=== PATIENT | male | born 1960 | race Two or more races ===

== ENCOUNTER 2016-11-02 21:57 | Inpatient (IN) | payer OTHER ==
--- NOTE | ~2016-11-02 | NM8 ---
[facility] A Service of [facility] RADIOLOGY TEXT RESULTS PATIENT: ABA BUSTILLO LOCATION: [facility] : 62 UNIT #: [id number] AGE: [address]: Oliverio Ren MD SEX: M ORDER DR: [id number] [facility] [address] [place], [place] [address] [id number] I MR#: [id number] Acc #: [id number] NAME: ABA BUSTILLO : 1960 SEX: M STUDY DATE/TIME: 11/06/2016 12:35 UNIT: [facility] ROOM: [facility] STUDY DESCRIPTION: NM Bone or Joint Whole Body Attending Physician: Oliverio Ren M.D. Ordering Physician: Greta Pro M.D. Primary Care Physician: Primary Care Physician No MEDICAL IMAGING REPORT This report is preliminary unless electronic signature is present EXAM Bone scan, 11/06 HISTORY Hepatocellular carcinoma. Observation of malignant neoplasm. The patient diagnosed one week ago. FINDINGS Routine whole body delayed images were obtained after the IV administration of 32.7 mCi of technetium 99m-MDP. The exam is correlated with chest CT dated 11/03/2016 and prior abdomen and pelvis CT dated 11/02/2016. There is degenerative uptake in both knees and in the right mid foot. There is some mild degenerative uptake in the elbows and AC joints. The study otherwise demonstrates physiologic tracer distribution. There is no evidence for osseous metastatic disease. IMPRESSION Polyarticular degenerative disease as above. No evidence of osseous metastatic disease. Dictated by... Mendez Moura Jr., M.D. THIS IS AN ELECTRONICALLY VERIFIED REPORT Mendez Moura Jr., M.D. at 11/06/2016 5:00 PM OLGA/philipp TD: 11/06/2016 15:03 JOB #: [id number] [facility] A Service [facility] RADIOLOGY TEXT RESULTS PATIENT: ABA BUSTILLO [facility] [address] [id number] : [birth year] UNIT #: [id number] AGE: [address]: Oliverio Ren MD SEX: M ORDER DR: MEDICAL IMAGING REPORT COPY
--- NOTE | ~2016-11-02 | HP ---
Unit #: [id number] #: [id number] Patient: ABA BUSTILLO [id number] [address] [place], [place] [address] [id number] I MR#: [id number] NAME: ABA BUSTILLO ROOM: 43852 Age: 56 Sex: M Admission Date: 11/03/2016 : 1960 Attending Physician: Aleksandra Miguel M.D. Primary Care Physician: No Primary Care Physician HISTORY AND PHYSICAL CHIEF COMPLAINT Right sided pain. HISTORY OF PRESENT ILLNESS The patient is a 56-year-old male with a past medical history of hepatitis C who presented to the emergency department for evaluation of the above. History is obtained via Icelandic electrical sign wirer #[id number] due to the patient being Icelandic speaking only. Actually, history is obtained from his . The patient preferred that she provide the history. The patient has had a one week history of right upper quadrant pain. There are no exacerbating or alleviating factors. He denies any similar pain. The pain became acutely worse on the day prior to admission. He has had nausea but no vomiting. He denies any constipation or diarrhea. No change in his weight. In the emergency department, CT of the abdomen and pelvis was done and showed findings concerning for an infiltrating malignant-appearing mass involving the right lobe of the liver. He is being admitted to [facility] for evaluation and further treatment. PAST MEDICAL HISTORY 1. Hepatitis C diagnosed in 2010. The patient had Interferon treatment from February to August 2011. 2. The patient denies any hospitalizations. 3. Hyperlipidemia. The patient was told that his cholesterol was high; however, he is not on any medication. PAST SURGICAL HISTORY None. SOCIAL HISTORY The [place] the [place] four [place] ago. He is originally from [place]. He lives with his . He smokes a half pack of cigarettes daily. He denies alcohol or illicit drug use. FAMILY HISTORY Notable for his mother having throat cancer. ALLERGIES No known allergies. HOME MEDICATIONS None. Unit #: [id number] #: [id number] Patient: ABA BUSTILLO REVIEW OF SYSTEMS A ten point review of systems is negative except as indicated in the HPI. The patient denies ever having paracentesis. DIAGNOSTIC STUDIES IMAGING: CT of the abdomen and pelvis shows hepatic cirrhosis. There is a large infiltrative malignant-appearing mass in the posterior segment of the right hepatic lobe measuring up to 5.7 cm showing typical features for hepatocellular carcinoma with extensive tumor thrombus within the portal veins and hepatic vein branches. Mild splenomegaly as well as mild prominent lymph nodes in the gastrohepatic ligament are noted. LABORATORY: INR is 1.1. Urinalysis is essentially negative. Comprehensive metabolic panel notable for glucose of 126. AST and ALT 121 and 126 respectively. Amylase and lipase are normal. Complete blood count notable for hemoglobin and hematocrit of 17.2 and 51.2 respectively. Platelets are 110. PHYSICAL EXAMINATION VITAL SIGNS: Temperature is 98.6, pulse 83, respirations 12, blood pressure 108/68. GENERAL: The patient is a very pleasant male in no acute distress. HEENT: The head is atraumatic. Mucous membranes are moist. NECK: Supple. Trachea is midline. CARDIOVASCULAR: Regular rate and rhythm. LUNGS: Clear to auscultation bilaterally with no increased work of breathing. ABDOMEN: Soft. He is tender to palpation in the right upper quadrant. Bowel sounds are present in all four quadrants. EXTREMITIES: Nontender with no pedal edema. NEURO: The patient is awake and alert. He follows commands. PSYCH: Mood and affect are normal. The patient is cooperative. SKIN: Skin of examined areas is warm and dry. ASSESSMENT The patient is a 56-year-old male with: 1. Liver mass concerning for malignancy. 2. 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 The patient's platelet is 110 with no baseline for comparison. 3. Transaminitis secondary to hepatitis C. 4. Hepatitis C, status post Interferon treatment in 2010. 5. Hyperlipidemia, not on medication. 6. Tobacco abuse. PLAN 1. Admit for observation to Med/Surg. 2. NPO until seen by Dr. Valdovinos. 3. Normal saline at 75 mL/hour. 4. Consult Dr. Valdovinos regarding liver mass. 5. Consult Dr. Pro regarding liver mass. 6. P.r.n. morphine. 7. P.r.n. Zofran. 8. Repeat labs in the morning. Unit #: [id number] #: [id number] Patient: ABA BUSTILLO 9. SCDs for DVT prophylaxis. 10. Additional workup and consultants based on above. Dictated by Ray Thompson TD: 11/03/2016 06:16 JOB #: [id number] HISTORY AND PHYSICAL X Aleksandra Miguel MD HISTORY AND PHYSICAL
--- NOTE | ~2016-11-02 | CO ---
Unit #: [id number] #: [id number] Patient: ABA BUSTILLO [id number] [address] [place], [place] [address] [id number] I MR#: [id number] NAME: ABA BUSTILLO ROOM: 226 Age: 56 Sex: M Admission Date: 11/03/2016 : 1960 Attending Physician: Oliverio Ren M.D. Primary Care Physician: Primary Care Physician No Consultation Date: 11/03/2016 CONSULTATION REPORT REASON FOR CONSULTATION Right upper quadrant abdominal pain and hepatocellular cancer. HISTORY OF PRESENT ILLNESS Mr. King is a 56-year-old gentleman, who is originally from [place]. He was in the refugee camp in [facility], where he was as a refugee in [facility] and is subsequently being came to [facility] about 4 months ago along with his and family. Apparently, he is known to have had hepatitis C and failed treatment to interferons with or without ribavirin in [facility]. He subsequently has had evaluations in [facility], the nature of which is unclear. For the past 3 to 4 weeks, he has been having right upper quadrant abdominal pain along with nausea and anorexia, and upon admission found to have a hepatocellular carcinoma on imaging studies on CAT scan. PAST MEDICAL HISTORY Significant for hepatitis C as mentioned above failed to interferon treatment many years ago, history of hyperlipidemia not on any medication. PAST SURGICAL HISTORY None. HOME MEDICATIONS None. ALLERGIES No known drug allergies. FAMILY HISTORY Significant for mother having throat cancer. SOCIAL HISTORY The patient smokes half pack of cigarette daily and does not drink alcohol. He is originally from [place], was in the refugee camp in [facility] for 3 to 4 years before being given refugee Asylum in [facility]. REVIEW OF SYSTEMS Detailed review of organ systems does not reveal any recent weight loss. No history of fever, chills, or rigors. No history of headache, seizures, or syncope. No history of cough, expectoration, or hemoptysis. No history of dysuria, hematuria, or pyuria. No history of focal seizures or extremity weakness. Unit #: [id number] #: [id number] Patient: ABA BUSTILLO PHYSICAL EXAMINATION GENERAL: He is alert and oriented, and appears comfortable. VITAL SIGNS: Stable with a temperature of 98.4, pulse is 55 per minute and regular, respiratory rate is 16, and blood pressure is 102/58. He weighs 142 pounds. We do not know his baseline weight. HEENT: He has no pallor, icterus, lymphadenopathy, or peripheral edema. CARDIOVASCULAR: Reveal normal heart sounds. No murmurs on auscultation. LUNGS: Reveal normal breath sounds. Good air entry. ABDOMEN: Soft. There being localized area of tenderness in the right upper quadrant. Liver and spleen are not palpable. Bowel sounds normal. DIAGNOSTIC STUDIES LABORATORY RESULTS: Reveals a normal CBC, INR, and serum chemistry except for albumin of 3.2 and AST and ALT which are mildly elevated to 122 and 115 respectively, alkaline phosphatase is normal. His alpha-fetoprotein level is 20,000. Hepatitis C serology is pending. IMAGING STUDIES: His CT scan of the chest and abdomen were done and shows 5 cm x 5.5 cm infiltrating mass in the right hepatic lobe. The patient does have underlying cirrhosis and mild splenomegaly. CLINICAL IMPRESSION The patient has an underlying cirrhosis and substantially large hepatocellular cancer with high alpha-fetoprotein levels. I am quite doubtful whether this is resectable mass based upon his presentation imaging and tumor marker level. In any event, a discussion with the transplant surgeon. Liver transplant center will be appropriate which is being initiated. Thank you for asking me to see this pleasant gentleman. I appreciate the consult. Dictated by... Ray Cid/chico TD: 11/18/2016 06:37 JOB #: [id number] CC: Aleksandra Miguel M.D. CONSULTATION REPORT X Jonathan Valdovinos MD CONSULTATION REPORT
--- NOTE | ~2016-11-02 | CT2 ---
[facility] A Service of [facility] RADIOLOGY TEXT RESULTS PATIENT: ABA BUSTILLO LOCATION: [facility] 226-01 : 62 UNIT #: [id number] AGE: [address]: Viki Gilbert MD SEX: M ORDER DR: [id number] [facility] [address] [place], [place] [address] [id number] MR#: [id number] Acc #: [id number] NAME: ABA BUSTILLO : 1960 SEX: M STUDY DATE/TIME: 11/02/2016 22:47 UNIT: [facility] ROOM: STUDY DESCRIPTION: CT Abd and Pelv W Cont Attending Physician: Chica Benites M.D. Ordering Physician: Yassine Pierce M.D. Primary Care Physician: No Primary Care Physician MEDICAL IMAGING REPORT This report is preliminary unless electronic signature is present EXAM CT abdomen and pelvis with contrast. DATE OF EXAM 11/02/2016. HISTORY 56-year-old male in the ED complaining of 1-day history of right-side abdomen pain. TECHNIQUE CT examination of the abdomen and pelvis was performed with IV contrast. GI contrast material was not ordered. NOTE: This CT exam was performed with one or more of the following radiation dose reduction techniques: automatic exposure control, adjustment of mA and/or kV according to patient size, and iterative reconstruction. FINDINGS ABDOMEN: The examination shows morphologic changes of hepatic cirrhosis. There is a malignant-appearing infiltrative mass in the posterior segment right hepatic lobe inferiorly (segment 6) measuring at least 5 x 4.7 x 5.7 cm. Extensive tumor thrombus is present within portal veins and an accessory hepatic vein within the right hepatic lobe. The findings are compatible with hepatocellular carcinoma. Main portal vein, left portal veins and the remaining hepatic veins and IVC are patent. A few mildly prominent lymph nodes are present in the gastrohepatic ligament, but no adenopathy is seen elsewhere within the abdomen, retroperitoneum or pelvis. There is no abdominal ascites. The spleen is mildly enlarged. Small bowel and colon are normal in caliber and appearance, as imaged. The kidneys are negative with no evidence of urinary obstruction. PELVIS: Bladder, prostate and rectum are negative. STS. [facility] A Service of [facility] RADIOLOGY TEXT RESULTS PATIENT: ABA BUSTILLO LOCATION: [facility] 226-01 : 62 UNIT #: [id number] AGE: [address]: Viki Gilbert MD SEX: M ORDER DR: Mild atelectasis in the right posterior costophrenic angle. Lung base images otherwise negative. No pleural effusion. IMPRESSION 1. Hepatic cirrhosis. 2. Large, infiltrative malignant-appearing mass in the posterior segment right hepatic lobe measuring up to 5.7 cm showing typical features for hepatocellular carcinoma. This includes extensive tumor thrombus within segmental portal veins and hepatic vein branches in the posterior segment right hepatic lobe. No additional tumor thrombus is seen elsewhere within the liver. 3. Mild splenomegaly. No ascites. 4. Mildly prominent lymph nodes in the gastrohepatic ligament. No adenopathy is seen elsewhere within the abdomen, retroperitoneum or pelvis. STAT * RESULT Dictated by... Aníbal Can M.D. THIS IS AN ELECTRONICALLY VERIFIED REPORT Aníbal Can M.D. at 11/03/2016 10:17 AM Justice TD: 11/02/2016 23:17 JOB #: [id number] MEDICAL IMAGING REPORT COPY
--- NOTE | ~2016-11-02 | CT55 ---
[facility] A Service of [facility] & [facility] RADIOLOGY TEXT RESULTS PATIENT: ABA BUSTILLO LOCATION: C2A - : 62 UNIT #: [id number] AGE: [address]: Oliverio Ren MD SEX: M ORDER DR: [id number] [facility] [address] [place], [place] [address] [id number] I MR#: [id number] #: [id number] NAME: ABA BUSTILLO : 1960 SEX: M STUDY DATE/TIME: 11/03/2016 19:44 UNIT: C2A ROOM: 226 STUDY DESCRIPTION: CT Chest W Con Attending Physician: Viki Gilbert M.D. Ordering Physician: Greta Pro M.D. Primary Care Physician: No Primary Care Physician MEDICAL IMAGING REPORT This report is preliminary unless electronic signature is present EXAM CT of chest with contrast HISTORY Liver mass. This is identified on a CT performed 11/02/2016. This mass by CT appears to be hepatocellular carcinoma. This exam is requested for surveillance for metastatic disease. TECHNIQUE Axial CT images were obtained from the thoracic inlet through the dome of the diaphragm following the administration of intravenous contrast material. This CT exam was performed with one or more of the following radiation dose reduction techniques: automatic control, adjustment of mA and/or kV according to patient size, and iterative reconstruction. FINDINGS The thyroid gland trachea and esophagus appear unremarkable. There is no pleural or pericardial effusion. Thoracic aorta measures within normal size limits. Patient appears to have some dependent atelectasis and I do not see any suspicious noncalcified pulmonary nodules or masses to suggest pulmonary metastatic disease. Mediastinal and hilar lymph nodes do not appear pathologically enlarged. This patient again is noted to have a cirrhotic morphology to the liver and again there is an infiltrating mass identified within the right hepatic lobe which certainly could reflect hepatocellular carcinoma given background changes of cirrhosis and portal vein involvement. High density material is seen within the gallbladder which is favored to represent vicarious excretion of contrast material from yesterday's study as I do not clearly see it on the prior examination. Review of bone windows does not demonstrate any aggressive osseous abnormalities. [facility] A Service of [facility] & [facility] RADIOLOGY TEXT RESULTS PATIENT: ABA BUSTILLO LOCATION: A 226-01 : 62 UNIT #: [id number] AGE: [address]: Oliverio Ren MD SEX: M ORDER DR: IMPRESSION 1. No convincing evidence of metastatic disease to the thorax. 2. Bibasilar atelectasis which has increased when compared to yesterday's study. 3. Cirrhotic morphology to the liver. Patient is again noted to have an infiltrating mass within the right hepatic lobe. 4. Vicarious excretion of contrast material suspected within the gallbladder. Dictated by... Nely De La Cruz M.D. THIS IS AN ELECTRONICALLY VERIFIED REPORT Nely De La Cruz M.D. at 11/06/2016 1:16 PM AFF/rnr TD: 11/04/2016 00:24 JOB #: [id number] MEDICAL IMAGING REPORT COPY
--- NOTE | ~2016-11-02 | CO ---
Unit #: [id number] #: [id number] Patient: ABA BUSTILLO [id number] [address] [place], [place] [address] [id number] I MR#: [id number] NAME: ABA BUSTILLO ROOM: 226 Age: 56 Sex: M Admission Date: 11/03/2016 : 1960 Attending Physician: Viki Gilbert M.D. Primary Care Physician: No Primary Care Physician CONSULTATION REPORT CHIEF COMPLAINT Hepatitis C cirrhosis, now hepatocellular carcinoma. HISTORY OF PRESENT ILLNESS This is a 56-year-old male who is a refugee. He is from [place]. He came to this [facility] about three months ago. Patient has a hepatitis C. He was receiving Interferon during 2010 but no response. Patient now has cirrhosis of the liver. Patient came with a right upper quadrant pain, gradually worsened. Patient had a CT of the abdomen and pelvis on 11/02/2016. It shows a 5 x 4.7 x 5.7 cm mass in the right upper lobe. Extensive tumor thrombus is present within the portal vein and accessory hepatic vein with the right hepatic lobe. Main portal vein, left portal veins are patent. His CT of the chest is pending. Bone scan is pending. Alpha- fetoprotein pending. No weight loss. REVIEW OF SYSTEMS REVIEW OF SYSTEMS CONSTITUTIONAL: No fever, no chills, no sweats, no weight loss. EYES: No visual symptoms. EARS, NOSE AND THROAT: There is no runny nose or sore throat or difficulty hearing. CARDIOVASCULAR: No chest pain. No shortness of breath. No palpitations. No orthopnea. No PND. RESPIRATORY: No cough. No wheezing. No hemoptysis. GASTROINTESTINAL: As mentioned above, right upper quadrant pain. GENITOURINARY: No urinary frequency, hesitancy or urgency. No blood in the urine. MUSCULOSKELETAL: No muscle or joint pain. NEUROLOGIC: No headache. No numbness or tingling. No weakness. No seizure. PSYCHIATRIC: No anxiety, depression or mood disturbance. ENDOCRINE: No excessive urination or thirst. DERMATOLOGIC: No rash or change in the skin. ALLERGIC/IMMUNOLOGIC: No symptoms. HEMATOLOGIC/LYMPHATIC: Denies any symptoms. PAST MEDICAL HISTORY 1. Hepatitis C cirrhosis of the liver. Received Interferon in 2010. No Unit #: [id number] #: [id number] Patient: ABA BUSTILLO. 2. Increased cholesterol. 3. Now hepatocellular carcinoma. ALLERGIES None. SOCIAL HISTORY Has been smoking 10 cigarettes per day for 30 years, denies alcohol abuse. 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 FAMILY HISTORY Father of kidney disease and mother had a head and neck cancer. PHYSICAL EXAMINATION GENERAL: Patient is comfortable. ECOG is 0. The patient is pleasant. VITAL SIGNS: Afebrile, O2 sat on room air 93%, pulse 55, respirations 17, blood pressure 126/70. HEENT: Moist mucosa. Pupils equally reactive to light. Extraocular muscles intact. Sclerae anicteric. No obvious bleeding from nasal mucosa or oral mucosa. Scalp normal. Hearing normal. NECK: No JVD. No lymphadenopathy. LYMPHATIC/HEMATOLOGIC: There is no palpable adenopathy in the neck, axilla or inguinal area. CARDIOVASCULAR: S1, S2. Regular rate and rhythm. No S3 or S4. RESPIRATORY: Chest symmetrical, normal. Clear to auscultation bilaterally. No wheezes, no rales, no rhonchi. No dullness to percussion. ABDOMEN/GASTROINTESTINAL: Abdomen is soft, nontender, nondistended. No hepatosplenomegaly. EXTREMITIES: There is no clubbing, no cyanosis, no edema. No varicose veins. NEUROLOGICAL: Patient is alert, awake and oriented x3. Cranial nerves II-XII are intact. Sensory grossly intact. Motor is 4/5 in all four extremities. Gait is normal. Station is normal. Language is normal. Memory is normal. DTRs +2 in all four extremities. MUSCULOSKELETAL: No joint swelling. No bony tenderness. No muscle tenderness. SKIN: No petechiae, no rash, no ecchymosis. PSYCHIATRIC: No anxiety. No delusions or hallucinations. There is no agitation. Eye contact is normal. Affect is appropriate. There is no flight of ideas. DIAGNOSTIC STUDIES LABORATORY: WBC 10.8, hemoglobin 16.5, platelets 120, creatinine is 0.7, AST 125, ALT 125 as well, bilirubin 0.9. ASSESSMENT This is a 56-year-old male with the following active issues: 1. Hepatocellular carcinoma: Patient has an almost 6 cm hepatic mass. I will get CT of the chest and bone scan. Will check alpha-fetoprotein. I will consult Dr. Leda Collado for possible resection. 2. Thrombocytopenia: This is due to sequestration of platelets in the liver and spleen. We will observe. 3. Pain: He is taking morphine, hydrocodone. DISCUSSION I had an extensive discussion with the patient and his and the case Unit #: [id number] #: [id number] Patient: ABA BUSTILLO worker. Once the CT of the chest, bone scan become available we will discuss with them regarding prognosis. I also texted Dr. Leda Collado regarding the patient to get his opinion for early resection. Dictated by... Ray Soto/india TD: 11/03/2016 22:21 JOB #: [id number] CONSULTATION REPORT X Greta Pro MD X CONSULTATION REPORT
--- NOTE | ~2016-11-02 | DS ---
Unit #: [id number] #: [id number] Patient: ABA BUSTILLO [id number] [facility]. [place], [place] [address] [id number] I MR#: [id number] NAME: ABA BUSTILLO ROOM: 226 Age: 56 Sex: M Admission Date: 11/03/2016 : 1960 Discharge Date: 11/06/2016 Attending Physician: Oliverio Ren M.D. Primary Care Physician: No Primary Care Physician DISCHARGE SUMMARY DIAGNOSIS ON ADMISSION Liver mass. DIAGNOSES ON DISCHARGE 1. Hepatocellular carcinoma. 2. Chronic hepatitis C. 3. Hyperlipidemia. 4. Tobacco abuse. 5. Thrombocytopenia, secondary to chronic hepatitis C. CONSULTATIONS 1. Dr. Jonathan Valdovinos in GI consultation. 2. Dr. Rey Pro in oncology consultation. DIAGNOSTIC STUDIES LABORATORY: The patient's creatinine is 0.8, sodium 135, potassium 4.1. AST was 122, ALT was 155. WBC 9.2, hemoglobin 15.6, platelet count 104,000. IMAGING: CT scan of chest with contrast did not reveal any convincing evidence of metastatic disease to thorax. There was cirrhotic morphology to liver. There was infiltrating mass within right hepatic lobe. CT scan of abdomen and pelvis revealed hepatic cirrhosis. There was large infiltrative malignant-appearing mass in the posterior segment of right hepatic lobe measuring up to 5.7 cm. This includes extensive tumor thrombosis within segmental portal veins and hepatic vein branches. Mild splenomegaly present. HOSPITAL COURSE A 56-year-old male was admitted to [facility] with liver mass. Details are as per admission H and P. The patient was seen by Dr. Dr. Pro in consultation. The patient's liver mass was likely malignant. Bone scan was done. The results are pending. I discussed with Dr. Pro this morning who is planning to refer patient to [facility] for treatment via injection into liver with Dr. Khalil. Dr. Pro is going to discuss with patient's family prior to discharge today. Today patient is comfortable, is not in any acute distress. PHYSICAL EXAMINATION VITAL SIGNS: Reveal temperature of 99.2, pulse is 60 per minute, respiratory rate is 16 per minute, blood pressure is 95/58. HEENT: Revealed no conjunctival congestion. Sclerae is nonicteric. Unit #: [id number] #: [id number] Patient: ABA BUSTILLO NECK: Supple. Trachea is central. RESPIRATORY: Revealed breath sounds equal bilaterally. There are no wheezes or crackles. HEART: Regular rate and rhythm. S1, S2. ABDOMEN: Soft, nontender, nondistended. Bowel sounds are present in all four quadrants. NEUROLOGIC: Strength is 5/5 bilaterally. SKIN: Warm and dry. RECOMMENDATIONS ON DISCHARGE Condition is stable. Activity as tolerated. MEDICATIONS Pain medication will be as per Dr. Pro. FOLLOWUP The patient is advised to follow up with oncology as recommended. The plan was discussed in detail with patient and . Further followup will be as per Dr. Suresh. Please make note that I have discussed plan with Dr. Pro who is going to discuss with patient and his this afternoon. Dictated by... Ray Santamaria TD: 11/06/2016 15:43 JOB #: [id number] DISCHARGE SUMMARY X Oliverio Ren MD X DISCHARGE SUMMARY
[2016-11-02 21:09] LABS: BASOPHIL# 0.1 X10e3 (0-0.3); BASOPHIL% 1.1 % (0-2.5); EOSINOPHIL# 0.4 X10e3 (0-0.7); EOSINOPHIL% 4.6 % (0.0-7.0); HEMATOCRIT 51.2 % (38.0-50.0); HEMOGLOBIN 17.2 gm/dL (13.0-16.0); LYMPHOCYTE# 3.1 X10e3 (1.0-3.5); LYMPHOCYTE% 33.6 % (17.0-45.0); MEAN CELL VOLUME 91.2 FL (83-96); MEAN CORPUSCULAR HEMOGLOBIN 30.6 PG (28-34); MEAN CORPUSCULAR HGB CONC 33.5 g/dL (30-36); MEAN PLATELET VOLUME 9.2 FL (6.5-11.5); MONOCYTE# 0.8 X10e3 (0-1.0); MONOCYTE% 8.6 % (3.0-12.0); NEUTROPHIL# 4.8 X10e3 (1.5-7.1); NEUTROPHIL% 52.1 % (40-75); PLATELET COUNT 110 X10e3 (140-420); RED BLOOD COUNT 5.62 X10e (3.90-5.60); RED CELL DISTRIBUTION WIDTH 14.4 % (11.0-15.5); WHITE BLOOD COUNT 9.2 X10e3 (4.0-10.5)
[2016-11-02 21:11] LABS: DIFF IND NO
[2016-11-02 21:33] LABS: ALBUMIN SERUM 3.5 g/dL (3.5-5.0); ALKALINE PHOSPHATASE 83 U/L (32-92); ALT (SGPT) 126 U/L (10-40); AMYLASE 43 U/L (0-46); AST (SGOT) 121 U/L (10-42); BILIRUBIN, DIRECT 0.3 mg/dL (0.0-0.2); BILIRUBIN,INDIRECT 0.9 mg/dL (0.0-0.9); BILIRUBIN,TOTAL 1.2 mg/dL (0.2-2.0); BLOOD UREA NITROGEN 10 mg/dL (9-23); CALCIUM SERUM 9.1 mg/dL (8.4-10.2); CARBON DIOXIDE 26 mmol/L (22-31); CHLORIDE 103 mmol/L (100-111); CREATININE SERUM 0.8 mg/dL (0.6-1.4); GLOM FILT RATE Estimated ABOVE60 mL/min (>60); GLUCOSE FASTING 126 mg/dL (70-110); LIPASE 35 U/L (22-51); PROTEIN TOTAL SERUM 7.6 g/dL (6.0-8.3); SODIUM 137 mmol/L (135-145)
[2016-11-02 22:02] LABS: URINE SOURCE CLEAN CATCH
[2016-11-02 22:48] LABS: URINE APPEARANCE CLEAR; URINE BILIRUBIN NEG (NEG); URINE BLOOD NEG (NEG); URINE COLOR YELLOW; URINE GLUCOSE NEG (NEG); URINE KETONE NEG (NEG); URINE LEUKOCYTE ESTERASE NEG (NEG); URINE NITRATE NEG (NEG); URINE PROTEIN NEG (NEG); URINE SPECIFIC GRAVITY 1.012 (1.003-1.035); URINE UROBILINOGEN 0.2 MG/DL (NEG)
[2016-11-02 22:54] LABS: CULTURE INDICATED? NO
[2016-11-03 00:36] LABS: INR 1.1; PROTHROMBIN TIME (PATIENT) 11.7 SECONDS (9.6-11.5)
[2016-11-03 04:21] LABS: BASOPHIL# 0.1 X10e3 (0-0.3); BASOPHIL% 1.3 % (0-2.5); EOSINOPHIL# 0.6 X10e3 (0-0.7); EOSINOPHIL% 5.3 % (0.0-7.0); HEMATOCRIT 48.8 % (38.0-50.0); HEMOGLOBIN 16.5 gm/dL (13.0-16.0); LYMPHOCYTE# 3.8 X10e3 (1.0-3.5); LYMPHOCYTE% 35.8 % (17.0-45.0); MEAN CORPUSCULAR HEMOGLOBIN 30.5 PG (28-34); MEAN CORPUSCULAR HGB CONC 33.8 g/dL (30-36); MEAN PLATELET VOLUME 9.7 FL (6.5-11.5); MONOCYTE% 9.6 % (3.0-12.0); NEUTROPHIL# 5.2 X10e3 (1.5-7.1); PLATELET COUNT 120 X10e3 (140-420); RED BLOOD COUNT 5.42 X10e (3.90-5.60); RED CELL DISTRIBUTION WIDTH 14.4 % (11.0-15.5); WHITE BLOOD COUNT 10.8 X10e3 (4.0-10.5)
[2016-11-03 04:22] LABS: DIFF IND NO
[2016-11-03 04:33] LABS: INR 1.1; PROTHROMBIN TIME (PATIENT) 12.1 SECONDS (9.6-11.5)
[2016-11-03 04:52] LABS: ALBUMIN SERUM 3.5 g/dL (3.5-5.0); ALKALINE PHOSPHATASE 79 U/L (32-92); ALT (SGPT) 125 U/L (10-40); AST (SGOT) 125 U/L (10-42); BILIRUBIN,TOTAL 1.6 mg/dL (0.2-2.0); BLOOD UREA NITROGEN 10 mg/dL (9-23); BUN/CREATININE RATIO 14.28; CALCIUM SERUM 9.1 mg/dL (8.4-10.2); CARBON DIOXIDE 25 mmol/L (22-31); CHLORIDE 104 mmol/L (100-111); CREATININE SERUM 0.7 mg/dL (0.6-1.4); GLOM FILT RATE Estimated ABOVE60 mL/min (>60); GLUCOSE FASTING 100 mg/dL (70-110); POTASSIUM 4.9 mmol/L (3.5-5.1); PROTEIN TOTAL SERUM 7.5 g/dL (6.0-8.3); SODIUM 136 mmol/L (135-145)
[2016-11-03] MEDS ORDERED: NO MEDICATIONS (10:30)
[2016-11-04 05:32] LABS: HEMATOCRIT 46.1 % (38.0-50.0); HEMOGLOBIN 15.6 gm/dL (13.0-16.0); MEAN CELL VOLUME 90.9 FL (83-96); MEAN CORPUSCULAR HEMOGLOBIN 30.7 PG (28-34); MEAN CORPUSCULAR HGB CONC 33.8 g/dL (30-36); RED BLOOD COUNT 5.07 X10e (3.90-5.60); RED CELL DISTRIBUTION WIDTH 14.3 % (11.0-15.5); WHITE BLOOD COUNT 9.2 X10e3 (4.0-10.5)
[2016-11-04 06:05] LABS: ALBUMIN SERUM 3.2 g/dL (3.5-5.0); ALKALINE PHOSPHATASE 75 U/L (32-92); ALT (SGPT) 115 U/L (10-40); AST (SGOT) 122 U/L (10-42); BLOOD UREA NITROGEN 15 mg/dL (9-23); BUN/CREATININE RATIO 18.75; CALCIUM SERUM 8.9 mg/dL (8.4-10.2); CARBON DIOXIDE 25 mmol/L (22-31); CHLORIDE 102 mmol/L (100-111); CREATININE SERUM 0.8 mg/dL (0.6-1.4); GLOM FILT RATE Estimated ABOVE60 mL/min (>60); GLUCOSE FASTING 92 mg/dL (70-110); POTASSIUM 4.1 mmol/L (3.5-5.1); PROTEIN TOTAL SERUM 6.8 g/dL (6.0-8.3); SODIUM 135 mmol/L (135-145)
[2016-11-06] MEDS ORDERED: ROXICODONE5 MG PO (14:39)
== END 2016-11-06 16:12 | disposition home or self-care (01) | DRG 435 ==
LOC: CED 21:57 → CEDOF 11-03 02:25 → C2A 11-03 06:38
PROVIDERS: Emergency Medicine; Family Medicine; Internal Medicine
DX: C22.0 Liver cell carcinoma (principal); I81 Portal vein thrombosis; I82.0 Budd-Chiari syndrome; B19.20 Unspecified viral hepatitis C without hepatic coma; E78.5 Hyperlipidemia, unspecified; F17.210 Nicotine dependence, cigarettes, uncomplicated; D69.6 Thrombocytopenia, unspecified; R74.0 Nonspecific elevation of levels of transaminase and lactic acid dehydrogenase [LDH]; K74.60 Unspecified cirrhosis of liver; R04.0 Epistaxis
CPT/HCPCS: 36415; 71260; 74177; 78306; 80048; 80053; 80076; 81003; 82105; 82150; 83690; 85025; 85027; 85610; 87521; 96374; 96375; 99285; A9503; J2270; J2405; Q9967

== ENCOUNTER → 2017-02-10 | Outpatient (CLI) | payer OTHER ==
[~2017-02-10] MED LIST: NO MEDICATIONS; ROXICODONE5 MG PO
[2017-02-10 13:43] LABS: ALBUMIN SERUM 2.8 g/dL (3.5-5.0); BILIRUBIN,TOTAL 4.5 mg/dL (0.2-2.0); CALCIUM SERUM 8.8 mg/dL (8.4-10.2); CREATININE SERUM 0.7 mg/dL (0.6-1.4); GLOM FILT RATE Estimated 106.3 mL/min (>60); POTASSIUM 3.7 mmol/L (3.5-5.1); PROTEIN TOTAL SERUM 7.7 g/dL (6.0-8.3)
[2017-02-10 15:00] LABS: HEMATOCRIT 47.8 % (38.0-50.0); HEMOGLOBIN 16.1 gm/dL (13.0-16.0); MEAN CELL VOLUME 94.1 FL (83-96); MEAN CORPUSCULAR HEMOGLOBIN 31.7 PG (28-34); MEAN CORPUSCULAR HGB CONC 33.7 g/dL (30-36); MEAN PLATELET VOLUME 10.7 FL (6.5-11.5); RED BLOOD COUNT 5.08 X10e (3.90-5.60); RED CELL DISTRIBUTION WIDTH 17.2 % (11.0-15.5); WHITE BLOOD COUNT 3.4 X10e3 (4.0-10.5)
== END | disposition home or self-care (01) ==
LOC: CLAB 12:57
PROVIDERS: Surgery Surgical Oncology
DX: C22.0 Liver cell carcinoma (principal)
CPT/HCPCS: 36415; 80053; 82105; 85027

== ENCOUNTER 2017-02-14 17:15 | Emergency (ER) | payer OTHER ==
--- NOTE | ~2017-02-14 | CT4 ---
[facility] A Service of [facility] RADIOLOGY TEXT RESULTS PATIENT: ABA BUSTILLO LOCATION: [facility] : 62 UNIT #: [id number] AGE: [address]: Zeferino Oconnor MD SEX: M ORDER DR: [id number] [facility]. [place], [place] [address] [id number] E MR#: [id number] Acc #: [id number] NAME: ABA BUSTILLO : 1960 SEX: M STUDY DATE/TIME: 02/14/2017 20:04 UNIT: [facility] ROOM: STUDY DESCRIPTION: CT Abd and Pelv Wo Cont Attending Physician: Zeferino Oconnor M.D. Ordering Physician: Zeferino Oconnor M.D. Primary Care Physician: Leda Collado M.D. MEDICAL IMAGING REPORT This report is preliminary unless electronic signature is present EXAM CT abdomen and pelvis without contrast INDICATIONS Generalized abdominal and lower back pain and weakness for the past [address] abdomen and pelvis. This CT exam was performed with one or more of the following radiation dose reduction techniques: automatic exposure control, adjustment of mA and/or kV according to patient size, and iterative reconstruction. COMPARISON STUDIES 11/02/2016 FINDINGS Cirrhotic morphology of the liver. There is ill-defined area of low attenuation in the posterior right hepatic lobe measuring approximately 4.3 cm. This area previously measured up to 5 cm but it is not well seen on this study. Spleen measures 13.2 cm. The kidneys adrenal glands, pancreas, gallbladder have an unremarkable unenhanced appearance. The bowel loops are nondilated. Pelvis without contrast. No pelvic mass or fluid. No aggressive appearing bone lesion. IMPRESSION 1. Cirrhosis. Mild splenomegaly. 2. Ill-defined area of low attenuation posterior right hepatic lobe measures smaller than on 11/02/2016, but would be better [facility] A Service of [facility] RADIOLOGY TEXT RESULTS PATIENT: ABA BUSTILLO LOCATION: [facility] : 62 UNIT #: [id number] AGE: [address]: Zeferino Oconnor MD SEX: M ORDER DR: characterized with dedicated liver protocol MRI or CT. Dictated by... Lucian Spencer M.D. THIS IS AN ELECTRONICALLY VERIFIED REPORT Lucian Spencer M.D. at 02/15/2017 2:26 PM KELL/emily TD: 02/14/2017 23:03 JOB #: [id number] MEDICAL IMAGING REPORT Page 1 of 1 COPY
[2017-02-14 18:56] LABS: BASOPHIL% 0.7 % (0-2.5); EOSINOPHIL# 0.2 X10e3 (0-0.7); EOSINOPHIL% 4.3 % (0.0-7.0); HEMOGLOBIN 15.7 gm/dL (13.0-16.0); LYMPHOCYTE# 0.9 X10e3 (1.0-3.5); MEAN CELL VOLUME 94.6 FL (83-96); MEAN CORPUSCULAR HEMOGLOBIN 31.6 PG (28-34); MEAN CORPUSCULAR HGB CONC 33.4 g/dL (30-36); MONOCYTE# 0.6 X10e3 (0-1.0); MONOCYTE% 10.5 % (3.0-12.0); NEUTROPHIL# 3.7 X10e3 (1.5-7.1); NEUTROPHIL% 67.5 % (40-75); RED BLOOD COUNT 4.96 X10e (3.90-5.60); WHITE BLOOD COUNT 5.5 X10e3 (4.0-10.5)
[2017-02-14 19:15] LABS: DIFF IND NO; PLATELET COUNT 66 X10e3 (140-420)
[2017-02-14 19:17] LABS: ALBUMIN SERUM 2.7 g/dL (3.5-5.0); BILIRUBIN, DIRECT 3.6 mg/dL (0.0-0.2); BILIRUBIN,INDIRECT 3.4 mg/dL (0.0-0.9); BUN/CREATININE RATIO 11.42; CALCIUM SERUM 8.8 mg/dL (8.4-10.2); CREATININE SERUM 0.7 mg/dL (0.6-1.4); GLOM FILT RATE Estimated 106.3 mL/min (>60); POTASSIUM 4.4 mmol/L (3.5-5.1); PROTEIN TOTAL SERUM 7.4 g/dL (6.0-8.3)
[2017-02-14 19:31] LABS: URINE SOURCE CLEAN CATCH
[2017-02-14 19:37] LABS: URINE APPEARANCE CLEAR; URINE BILIRUBIN NEG (NEG); URINE BLOOD NEG (NEG); URINE COLOR DK YELLOW; URINE GLUCOSE NEG (NEG); URINE KETONE NEG (NEG); URINE LEUKOCYTE ESTERASE NEG (NEG); URINE NITRATE NEG (NEG); URINE PH 6.5 (5-8); URINE PROTEIN NEG (NEG); URINE SPECIFIC GRAVITY 1.004 (1.003-1.035); URINE UROBILINOGEN 0.2 MG/DL (NEG)
[2017-02-14 19:42] LABS: CULTURE INDICATED? NO
[2017-02-14 19:58] LABS: INR 1.3; PARTIAL THROMBOPLASTIN TIME 32.5 SECONDS (23.5-31.3)
== END 2017-02-14 21:29 | disposition home or self-care (01) ==
LOC: CED 17:15
PROVIDERS: Emergency Medicine
DX: C80.1 Malignant (primary) neoplasm, unspecified (principal); R10.11 Right upper quadrant pain
CPT/HCPCS: 36415; 74176; 80048; 80076; 81003; 82150; 83690; 85025; 85610; 85730; 96361; 96374; 96375; 99284; J2270; J2405

== ENCOUNTER → 2017-04-27 | Outpatient (CLI) | payer OTHER ==
--- NOTE | ~2017-04-27 | MR2 ---
[facility] A Service of [facility] & [facility] RADIOLOGY TEXT RESULTS PATIENT: ABA BUSTILLO LOCATION: [facility] : 62 UNIT #: [id number] AGE: [address]: Greta Pro MD SEX: M ORDER DR: [id number] [facility] [address] [place], [place] [address] [id number] O MR#: [id number] Acc #: [id number] NAME: ABA BUSTILLO : 1960 SEX: M STUDY DATE/TIME: 04/27/2017 18:55 UNIT: [facility] ROOM: STUDY DESCRIPTION: MR Abdomen WWo Cont Attending Physician: Greta Pro M.D. Referring Physician: Greta Pro M.D. Ordering Physician: Greta Pro M.D. Primary Care Physician: Leda Collado M.D. MRI CENTER REPORT This report is preliminary unless electronic signature is present. EXAM MRI with and without contrast DATE 04/27/2017 HISTORY Acute hepatitis C. The patient states "liver pain" for 5-6 months, swelling of both feet. Patient states that he is a candidate for liver transplant. Additional history of prostate cancer with last chemotherapy treatment February 08, 2017, and last radiation therapy treatment January 06, 2017. COMPARISON CT abdomen and pelvis without contrast 02/14/2017; whole body bone scan 11/06/2016; CT chest with contrast 11/03/2016; CT abdomen and pelvis with contrast 11/02/2016. PROCEDURE Multiplanar, multisequence imaging was obtained of the abdomen without and with contrast. Dynamic postcontrast imaging was obtained. 14 mL MultiHance contrast was administered intravenously. FINDINGS Advanced cirrhotic liver morphology is redemonstrated. There is abnormal early arterial phase of hyper enhancement in the right hepatic lobe, greatest posteriorly, greatest in segment 6, worrisome for potential infiltrating hepatocellular carcinoma. The region measures 8.1 x 6.2 cm in aggregate. Additionally, there appears to be thrombus within a posterior division of the right portal vein, and within the right middle and right hepatic veins. It is difficult to discern whether this represents bland thrombus or tumor thrombus. A second site of early arterial hyper enhancement is demonstrated in the anterior right hepatic STS. [facility] A Service of [facility] RADIOLOGY TEXT RESULTS PATIENT: ABA BUSTILLO LOCATION: [facility] : 62 UNIT #: [id number] AGE: [address]: Greta Pro MD SEX: M ORDER DR: lobe, segment 7 measuring 2.0 x 1.8 cm worrisome for another satellite of potential HCC. Main portal vein, left portal vein branch, SMV and splenic vein remain patent. Borderline splenic enlargement of 14.0 cm without focal abnormality. There is a small quantity pericholecystic fluid which is nonspecific, and could be related to the patient's underlying liver disease. Cholecystitis not excluded in the appropriate clinical context. No abnormal biliary dilation is identified. Pancreas and adrenal glands are normal. Tiny bilateral renal cysts are present, but no suspicious enhancing renal lesions are seen. Vascular collaterals are seen within the gastrohepatic and gastrosplenic ligaments. A dominant gastrohepatic ligament node measures 9 mm short axis. IMPRESSION 1. Avid early arterial phase hyperenhancing lesion in the posterior right hepatic lobe measuring nearly 8 cm worrisome for potential hepatic cellular carcinoma. Either bland or tumor thrombus is seen extending into the right and middle hepatic veins and posterior division of right portal vein. Another suspected satellite nodule in anterior right hepatic lobe measuring 2.[address] guided biopsy for confirmation. 2. Advanced cirrhotic liver morphology. 3. Pericholecystic fluid is present. It is unclear whether this represents changes related patient's underlying liver disease. Cholecystitis have a similar imaging appearance. Correlate with clinical symptoms. 4. Stable borderline splenomegaly. Dictated by... Lorena Funk M.D. THIS IS AN ELECTRONICALLY VERIFIED REPORT Lorena Funk M.D. at 05/03/2017 8:[address] [facility]/to TD: 04/30/2017 16:30 JOB #: [id number] MRI CENTER REPORT Page 1 of 1 COPY
== END | disposition home or self-care (01) ==
LOC: CMRI 17:00
DX: B17.10 Acute hepatitis C without hepatic coma (principal); K76.9 Liver disease, unspecified
CPT/HCPCS: 74183; A9577

== ENCOUNTER 2017-05-30 16:23 | Emergency (ER) | payer OTHER ==
[~2017-05-30] VITALS: Ht 170.2 cm; Wt 68.0 kg
--- NOTE | ~2017-05-30 | CT71 ---
[facility] A Service [facility] RADIOLOGY TEXT RESULTS PATIENT: ABA BUSTILLO LOCATION: [facility] : 62 UNIT #: [id number] AGE: [address]: Chica Benites MD SEX: M ORDER DR: [id number] [address] [address] [id number] E MR#: [id number] Acc #: [id number] NAME: ABA BUSTILLO : 1960 SEX: M STUDY DATE/TIME: 05/30/2017 19:37 UNIT: [facility] ROOM: STUDY DESCRIPTION: CT Head Wo Contrast Attending Physician: Chica Benites M.D. Ordering Physician: Chica Benites M.D. Primary Care Physician: Bonnie Pro MEDICAL IMAGING REPORT This report is preliminary unless electronic signature is present EXAM CT head without contrast dated 05/30/2017. COMPARISON None. HISTORY Headache, generalized weakness for [address] of the head was obtained without contrast in the axial plane as per the protocol. This CT exam was performed with one or more of the following radiation dose reduction techniques: automatic exposure control, adjustment of mA and/or kV according to patient size, and iterative reconstruction. FINDINGS No acute intracranial hemorrhage, hydrocephalus, space-occupying intracranial mass, or midline shift. Small cavum septum pellucidum and vergae are incidentally noted. Paranasal sinus mucosal thickening is noted, relatively worse in the left frontal sinus where it is moderate followed by bilateral ethmoid sinuses. Mastoid air cells, orbits with the ocular structures, and bones do not demonstrate any significant abnormality. IMPRESSION 1. No demonstrable acute intracranial abnormality. 2. Paranasal sinus mucosal thickening is seen. Correlate with sinusitis. [facility] A Service [facility] RADIOLOGY TEXT RESULTS PATIENT: ABA BUSTILLO LOCATION: [facility] : 62 UNIT #: [id number] AGE: [address]: Chica Benites MD SEX: M ORDER DR: Dictated by... Jacky Oleary M.D. THIS IS AN ELECTRONICALLY VERIFIED REPORT Jacky Oleary M.D. at 06/06/2017 6:59 AM CPR/tmw TD: 05/30/2017 22:12 JOB #: [id number] MEDICAL IMAGING REPORT Page 1 of 1 COPY
--- NOTE | ~2017-05-30 | CR63 ---
[facility] A Service of [facility] RADIOLOGY TEXT RESULTS PATIENT: ABA BUSTILLO LOCATION: [facility] : 62 UNIT #: [id number] AGE: [address]: Chica Benites MD SEX: M ORDER DR: [id number] [facility] [address] [place], [place] [address] [id number] E MR#: [id number] Acc #: [id number] NAME: ABA BUSTILLO : 1960 SEX: M STUDY DATE/TIME: 05/30/2017 20:14 UNIT: [facility] ROOM: STUDY DESCRIPTION: CR Chest 2 View Attending Physician: Chica Benites M.D. Ordering Physician: Mendez Pozo M.D. Primary Care Physician: Bonnie Pro MEDICAL IMAGING REPORT This report is preliminary unless electronic signature is present EXAM Chest x-ray, 05/30/2017 INDICATION Cough, weakness and headache for the last 3 days. History of liver cancer. FINDINGS 2 views of the chest compared with chest CT from 11/03/2016. Cardiac and mediastinal contours are normal. Lungs are clear. There is no pneumothorax. IMPRESSION No active disease. Dictated by... Mendez Moura Jr., M.D. THIS IS AN ELECTRONICALLY VERIFIED REPORT Mendez Moura Jr., M.D. at 05/31/2017 10:01 AM OLGA/diane TD: 05/30/2017 22:39 JOB #: [id number] MEDICAL IMAGING REPORT Page 1 of 1 COPY
[2017-05-30 18:21] LABS: BASOPHIL% 0.9 % (0-2.5); EOSINOPHIL# 0.3 X10e3 (0-0.7); EOSINOPHIL% 4.8 % (0.0-7.0); HEMATOCRIT 39.4 % (38.0-50.0); HEMOGLOBIN 13.7 gm/dL (13.0-16.0); LYMPHOCYTE# 1.3 X10e3 (1.0-3.5); LYMPHOCYTE% 24.9 % (17.0-45.0); MEAN CELL VOLUME 95.1 FL (83-96); MEAN CORPUSCULAR HEMOGLOBIN 33.1 PG (28-34); MEAN CORPUSCULAR HGB CONC 34.8 g/dL (30-36); MEAN PLATELET VOLUME 9.5 FL (6.5-11.5); MONOCYTE# 0.7 X10e3 (0-1.0); MONOCYTE% 12.9 % (3.0-12.0); NEUTROPHIL# 2.9 X10e3 (1.5-7.1); NEUTROPHIL% 56.5 % (40-75); RED BLOOD COUNT 4.15 X10e (3.90-5.60); RED CELL DISTRIBUTION WIDTH 14.9 % (11.0-15.5); WHITE BLOOD COUNT 5.2 X10e3 (4.0-10.5)
[2017-05-30 18:34] LABS: INR 1.3; PARTIAL THROMBOPLASTIN TIME 32.9 SECONDS (23.5-31.3); PROTHROMBIN TIME (PATIENT) 14.1 SECONDS (10.0-11.7)
[2017-05-30 18:42] LABS: ALBUMIN SERUM 3.2 g/dL (3.5-5.0); BILIRUBIN, DIRECT 0.8 mg/dL (0.0-0.2); BILIRUBIN,TOTAL 2.8 mg/dL (0.2-2.0); BUN/CREATININE RATIO 13.75; CALCIUM SERUM 9.1 mg/dL (8.4-10.2); CREATININE SERUM 0.8 mg/dL (0.6-1.4); GLOM FILT RATE Estimated 100.6 mL/min (>60); POTASSIUM 4.1 mmol/L (3.5-5.1); PROTEIN TOTAL SERUM 7.2 g/dL (6.0-8.3)
[2017-05-30 19:11] LABS: DIFF IND YES; PLATELET COUNT 50 X10e3 (140-420)
[2017-05-30 19:19] LABS: PLATELET ESTIMATE DECREASED (NORMAL)
[2017-05-30 19:20] LABS: RBC NORMAL YES
== END 2017-05-30 20:47 | disposition home or self-care (01) ==
LOC: CED 16:23
PROVIDERS: Emergency Medicine
DX: J32.9 Chronic sinusitis, unspecified (principal)
CPT/HCPCS: 36415; 70450; 71020; 80048; 80076; 83690; 85025; 85610; 85730; 99284